=== PATIENT | female | born 1980 | race Caucasian/White ===

== ENCOUNTER 2020-03-30 06:53 | Day surgery (SDC) | payer BC, OTHER ==
[2020-03-30] MEDS ORDERED: Lactated Ringers 1,000 ML IV ONE (07:10)
[2020-03-30] MEDS ORDERED: MEFOXIN 2 GM PREMIX** 2 GM/50 ML ML IV ONE (07:15)
[2020-03-30] MEDS ORDERED: CEFAZOLIN 2 GM-D5W BAG** 2 GM/50 ML ML IV ONE (07:17)
[2020-03-30] MEDS ORDERED: Lactated Ringers 1,000 ML IV SCH (07:30)
[2020-03-30] MEDS ORDERED: CEFAZOLIN 2 GM-D5W BAG** 2 GM/50 ML ML IV SCH (07:30)
[2020-03-30] MEDS ORDERED: DIPRIVAN 200 MG/20 ML IV ONE (08:52)
[2020-03-30] MEDS ORDERED: Versed 2 MG/2 ML Injection ONE (08:52)
[2020-03-30] MEDS ORDERED: SUBLIMAZE 100 MCG/2 ML ONE ×3 (08:52→09:14)
[2020-03-30] MEDS ORDERED: Xylocaine-Mpf 2% 5 Ml Vial ONE (08:54)
[2020-03-30] MEDS ORDERED: Decadron 4 MG INJ ONE (08:56)
[2020-03-30] MEDS ORDERED: TORAdol 30 mg Injection ONE (09:06)
[2020-03-30] MEDS ORDERED: Zofran 4 MG/2 ML VIAL ONE (09:10)
[2020-03-30 10:08] VITALS: O2SAT 95
[2020-03-30] MEDS ORDERED: ARZOL Silver Nitrate Applicator TP ONE (10:12)
[2020-03-30 10:43] VITALS: BP 148/87; PULSE 93
--- NOTE | 2020-03-31 07:51 | OP ---
SURGERY DATE/TIME: 03/30/2020 0852 PREOPERATIVE DIAGNOSIS: Menometrorrhagia and submucosal fibroid. 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 PROCEDURE: Hysteroscopy, D&C. SURGEON: Carroll Cristobal D.O. STREETCAR DISPATCHER: Vandana Finch, collision repair technician. ANESTHESIA: General. ESTIMATED BLOOD LOSS: Minimal. COMPLICATIONS: None. INDICATIONS: The risks, benefits, indications and alternatives of the procedure were reviewed with the patient prior to the procedure. The patient understood the risk of infection, bleeding, bowel injury, bladder injury, ureteral injury, uterine perforation, pelvic infection and thrombophilia disorder associated with the surgery however desires to have this procedure as a possible means to alleviate her current medical condition. DESCRIPTION OF PROCEDURE AND FINDINGS: At this point the patient is taken to the operating room, given general sedation, placed in dorsal lithotomy position. Prepped and draped in the usual sterile fashion. A weighted speculum is then placed in the patient's vagina and the anterior lip of the cervix was grasped with a single tooth tenaculum. Endocervical dilators were placed through the endocervical canal as a means to dilate the cervix. However there appeared to be two distinct openings from the cervical region where visualization revealed her to have a septum in the midline extending to her uterine fundus. The dilator appeared to enter with ease on both sides where the hysteroscope was then placed in through the endocervical canal where visualization revealed no submucosal fibroids on either side and there were no other gross abnormalities that were noted. Again, the septum appeared to be thick and midline. At this point the hysteroscope was removed and curette was then placed into the endocervical canal towards the frontal region on both sides retrieving a mild to moderate amount of endometrial tissue. From this point all instruments were then removed from the patient's vaginal region. The patient was then taken out of dorsal lithotomy position, was taken out of anesthesia and was then taken to the recovery room in stable condition. All instruments and laps were accounted for x2.
== END 2020-03-30 10:40 | disposition home or self-care (01) ==
LOC: SDC 06:53
PROVIDERS: ATTEND Obstetrics & Gynecology
DX: N92.1 Excessive and frequent menstruation with irregular cycle (principal); D25.9 Leiomyoma of uterus, unspecified
CPT/HCPCS: 58558; 84703; 88305; J0690; J0694; J1100; J1885; J2250; J2405; J2704; J3010; A9270-GY

== ENCOUNTER 2020-06-14 13:44 | Inpatient (IN) | payer OTHER ==
[2020-06-15] MEDS ORDERED: Lactated Ringers 1,000 ML IV ONE ×4 (06:33→14:37)
[2020-06-15] MEDS ORDERED: Naropin 0.5% 30 ML VIAL IJ ONE (07:56)
[2020-06-15] MEDS ORDERED: CEFAZOLIN 2 GM-D5W BAG** 2 GM/50 ML ML IV SCH (08:00)
[2020-06-15] MEDS ORDERED: CEFAZOLIN 2 GM-D5W BAG** 2 GM/50 ML ML IV ONE (08:11)
[2020-06-15 08:42] LABS: Hematocrit 37.6 % (35-47); Hemoglobin 11.7 gm/dl (12.0-16.0); Mean Cell Volume 81.2 fl (78-100); Mean Corpuscular Hemoglobin 25.3 pg (26-32); Mean Corpuscular Hgb Concent. 31.1 g/dl (32-36); Mean Platelet Volume 10.7 fl (7.5-11.0); Platelet Count 321 K/mm3 (150-450); Red Blood Count 4.63 M/mm3 (4.1-5.4); Red Cell Distribution Width 14.4 % (11.5-14.0); White Blood Count 8.3 K/mm3 (4.0-10.5)
[2020-06-15 09:16] LABS: ALBUMIN 4.1 g/dL (3.5-5.0); ALKALINE PHOSPHATASE 91 U/L (38-126); BLOOD UREA NITROGEN 12 mg/dL (7-17); CHLORIDE 104 mmol/L (98-107); Calcium 9.5 mg/dL (8.4-10.2); Carbon Dioxide 24 mmol/L (22-30); Creatinine 1 0.75 mg/dL (0.52-1.04); EST GLOMERULAR FILTRATION RATE > 60.0 ML/MIN; Glucose 111 mg/dL (74-106); SGOT/AST 34 U/L (14-36); SGPT/ALT 28 U/L (0-35); SODIUM 137 mmol/L (137-145); Total Protein 7.7 g/dL (6.3-8.2)
[2020-06-15 09:37] LABS: ABO TYPING A; Antibody Screen NEGATIVE (NEGATIVE); RH TYPING NEGATIVE
[2020-06-15] MEDS ORDERED: Astramorph-Pf 5 MG/10 ML ONE (12:18)
[2020-06-15] MEDS ORDERED: DIPRIVAN 200 MG/20 ML IV ONE (12:18)
[2020-06-15] MEDS ORDERED: Versed 2 MG/2 ML Injection ONE (12:18)
[2020-06-15] MEDS ORDERED: Zemuron 100 MG/10 ML ONE (12:18)
[2020-06-15] MEDS ORDERED: SUBLIMAZE 100 MCG/2 ML ONE (12:18)
[2020-06-15] MEDS ORDERED: Xylocaine-Mpf 2% 5 Ml Vial ONE (12:47)
[2020-06-15] MEDS ORDERED: Decadron 4 MG INJ ONE (13:01)
[2020-06-15] MEDS ORDERED: EPINEPHRINE 1MG/ML AMP ONE (13:29)
[2020-06-15] MEDS ORDERED: Zofran 4 MG/2 ML VIAL ONE (14:20)
[2020-06-15 15:09] LABS: Appearance CLEAR (CLEAR); Bilirubin NEGATIVE (NEGATIVE); Blood NEGATIVE Ery/ul (0-5); Glucose NEGATIVE (NEGATIVE); Ketones NEGATIVE (NEGATIVE); Leukocyte Esterase TRACE (NEGATIVE); Mucus SLIGHT /HPF (NEGATIVE); Nitrite NEGATIVE (NEGATIVE); Protein,Urine Dip NEGATIVE (Negative); Urobilinogen NEGATIVE mg/dL (0-1)
[2020-06-15] MEDS ORDERED: Zofran 4 MG/2 ML VIAL IV PRN ×2 (16:10→16:30)
[2020-06-15] MEDS ORDERED: Narcan 0.4 MG/ML IV PRN (16:30)
[2020-06-15] MEDS ORDERED: Sodium Chloride 0.9% 10 ML FLUSH Syringe IJ PRN (16:30)
[2020-06-15] MEDS ORDERED: MORPHINE SULFATE 2 MG INJ IV PRN ×2 (16:30→17:00)
[2020-06-15] MEDS ORDERED: CLARITIN 10 MG PO PRN (16:30)
[2020-06-15] MEDS ORDERED: PERCOCET TABLET 5/325MG PO PRN (16:30)
[2020-06-15] MEDS ORDERED: Nubain 10 MG/ML IV PRN ×2 (16:30→17:45)
[2020-06-15] MEDS ORDERED: DEMEROL 50 MG IV PRN (16:30)
[2020-06-15] MEDS: Reglan 10 MG/2 ML IV SCH (17:05)
[2020-06-15] MEDS: CEFAZOLIN 2 GM-D5W BAG** 2 GM/50 ML ML IV SCH (17:05)
[2020-06-15] MEDS ORDERED: BENADRYL 50 MG/ML IV PRN (17:36)
[2020-06-15] MEDS: TORAdol 30 mg Injection IV PRN (18:14)
[2020-06-15 18:45] LABS: Hematocrit 37.3 % (35-47); Hemoglobin 11.7 gm/dl (12.0-16.0); Mean Cell Volume 81.8 fl (78-100); Mean Corpuscular Hemoglobin 25.7 pg (26-32); Mean Corpuscular Hgb Concent. 31.4 g/dl (32-36); Mean Platelet Volume 10.9 fl (7.5-11.0); Platelet Count 311 K/mm3 (150-450); Red Blood Count 4.56 M/mm3 (4.1-5.4); Red Cell Distribution Width 14.4 % (11.5-14.0); White Blood Count 12.9 K/mm3 (4.0-10.5)
[2020-06-15] MEDS: Colace 100 MG PO SCH (21:25)
[2020-06-15] MEDS: Mylicon 80MG PO SCH (21:25)
[2020-06-15] MEDS: Lactated Ringers 1,000 ML IV SCH ×2 (21:31→23:56)
[2020-06-15] MEDS: Sodium Chloride 0.9% 10 ML FLUSH Syringe IJ SCH (22:16)
[2020-06-16] MEDS: CEFAZOLIN 2 GM-D5W BAG** 2 GM/50 ML ML IV SCH (02:21)
[2020-06-16] MEDS: Reglan 10 MG/2 ML IV SCH ×2 (02:25→06:02)
[2020-06-16 05:59] LABS: Hematocrit 33.4 % (35-47); Hemoglobin 10.4 gm/dl (12.0-16.0); Mean Cell Volume 82.7 fl (78-100); Mean Corpuscular Hemoglobin 25.7 pg (26-32); Mean Corpuscular Hgb Concent. 31.1 g/dl (32-36); Platelet Count 308 K/mm3 (150-450); Red Blood Count 4.04 M/mm3 (4.1-5.4); Red Cell Distribution Width 14.3 % (11.5-14.0); White Blood Count 13.6 K/mm3 (4.0-10.5)
[2020-06-16] MEDS: Sodium Chloride 0.9% 10 ML FLUSH Syringe IJ SCH (06:02)
[2020-06-16] MEDS: Mylicon 80MG PO SCH ×2 (06:06→13:06)
[2020-06-16] MEDS: TORAdol 30 mg Injection IV PRN (06:09)
[2020-06-16 06:30] LABS: ALBUMIN 3.4 g/dL (3.5-5.0); ALKALINE PHOSPHATASE 75 U/L (38-126); BLOOD UREA NITROGEN 10 mg/dL (7-17); CHLORIDE 104 mmol/L (98-107); Calcium 9.1 mg/dL (8.4-10.2); Carbon Dioxide 25 mmol/L (22-30); EST GLOMERULAR FILTRATION RATE > 60.0 ML/MIN; Glucose 115 mg/dL (74-106); Potassium 4.7 mmol/L (3.5-5.1); SGOT/AST 29 U/L (14-36); SGPT/ALT 23 U/L (0-35); SODIUM 134 mmol/L (137-145); Total Protein 6.6 g/dL (6.3-8.2)
[2020-06-16] MEDS ORDERED: ENOXAPARIN SODIUM SQ SCH (08:00)
[2020-06-16] MEDS: Colace 100 MG PO SCH (08:44)
[2020-06-16] MEDS: NORCO 5/325 MG PO PRN ×2 (09:04→13:06)
--- NOTE | 2020-06-16 09:49 | OP ---
SURGERY DATE/TIME: 06/15/2020 1237 PREOPERATIVE DIAGNOSIS: Abnormal uterine bleeding with failed ablation. POSTOPERATIVE DIAGNOSIS: Abnormal uterine bleeding with failed ablation. PROCEDURE: Laparotomy, supracervical hysterectomy, bilateral salpingectomy. SURGEON: Carroll Cristobal D.O. OPHTHALMIC MEDICAL TECHNICIAN: Karson Osborn surgical scrub tech. ANESTHESIA: General. ESTIMATED BLOOD LOSS: 100 cc. COMPLICATIONS: None. INDICATIONS: The risks, benefits, indications and alternatives of the procedure were reviewed with the patient prior to procedure. The patient understood the risk of infection, bleeding, bowel injury, bladder injury, ureteral injury, incisional hernia as well as pelvic infection, thromboembolic disorder that may be associated with the surgery however desires to have this surgery as a possible means to alleviate her current medical condition. DESCRIPTION OF PROCEDURE AND FINDINGS: At this point the patient is taken to the operating room, placed in supine position, given general anesthesia, prepared and draped in the usual sterile fashion. A Pfannenstiel incision was made approximately 2 cm above the symphysis pubis and extended sharply to the rectus fascia. The fascia was then incised bilaterally with curved [place] scissors and the muscle of the anterior abdominal wall was in the midline by sharp and blunt dissection. The peritoneum was then grasped between two pickups elevated and entered sharply with Metzenbaum scissors. The pelvis was examined and noted to be approximately 9 weeks size uterus. An O'Cam-O'Correa retractor was placed into the incision and the bowel packed away with moist laparotomy sponges. Two Felipe clamps were placed cornua and used for retraction. From this point the LigaSure was used and placed over the left utero-ovarian ligament where it was clamped, coagulated and cut and taken down to the round ligament towards the uterine vasculature on the left side and the uterine arteries were skeletonized clamped, coagulated and cut with LigaSure and hemostasis obtained. The same procedure was performed on the right side where the LigaSure was placed over the right utero-ovarian ligament where it was clamped, coagulated and cut taken down to the round ligament toward the uterine vessels where it was skeletonized where it too was clamped, coagulated and cut. At this point the anterior lip of the broad ligament was incised along the bladder reflection where the bladder was gently dissected off the lower uterine segment and the cervix with a sponge stick. From this point cautery was used to amputate the uterus from the cervical stump and was done so without complication and the cervical stump was then closed in interrupted fashion using 0 Vicryl suture with a figure-of-8 sutures. From this point the pelvis was then irrigated copiously with warm normal saline. The bilateral fallopian tubes on either side was lifted up with a Ghanaian and LigaSure was used to clamp, coagulate and cut on either side of the mesosalpinx. Good hemostasis was obtained. The bilateral ovaries appeared to be within normal limits and were not removed during the procedure. At this point all lap, needle, sponge and instruments were removed from the patient's abdomen. From this point the muscles in the peritoneum were closed in interrupted fashion using 2-0 chromic suture. The fascia was reapproximated with 0 Vicryl in running fashion and the subcutaneous layer was closed with 3-0 Vicryl suture and the skin was closed with absorbable cortney called INSORB. Sponge, lap, needle and instrument counts were correct x2. The patient was then taken to the recovery room in stable condition.
[2020-06-16 11:39] VITALS: O2SAT 95
[2020-06-16 16:58] VITALS: BP 129/58; PULSE 101
--- NOTE | 2020-06-16 21:46 | PCM.DS ---
Discharge Summary Date of Admission: 06/15/20 07:55 Admitting Physician: CORY HENRY DO Primary Care Provider: FLORES ROSSI Allergies Allergies No Known Drug Allergies Allergy (Verified 06/15/20 08:12) Hospital Summary - Hospital Course Hospital Course: PT ADMITTED ON JUN 15 FOR UNDERGOING LAPAROTOMY SUPRACERVICAL HYSTERECTOMY BILATERAL SALPINGECTOMY FOR ABNORMAL UTERINE BLEEDING WITH FAILED ABLATION. DURING POSTOP PERIOD PT DID WELL WITH A STABLE HGB AT 10. PT WAS ABLE TO AMBULATE AND TOLERATE DIET WITH POSTIVE FLATUS. PT AT THIS TIME STABLE FOR DISCHARGE. ALL QUESTIONS ANSWERED TO HER SATISFACTION. PT GIVEN RX FOR NORCO AND CLINDAMYCIN. - Vitals & Intake/Output Vital Signs: Vital Signs Temperature 98.2 F 06/16/20 16:30 Pulse Rate 101 H 06/16/20 16:30 Respiratory Rate 18 06/16/20 16:30 Blood Pressure 129/58 06/16/20 16:30 O2 Sat by Pulse Oximetry 95 06/16/20 11:38 Intake & Output: Intake & Output 06/14/20 06/15/20 06/16/20 06/17/20 11:59 11:59 11:59 11:59 Intake Total 1650 240 Output Total 1500 Balance 150 240 Weight 90.9 kg 98.3 kg - Lab Result Diagrams: 06/16/20 05:00 06/16/20 05:00 Lab Results-Last 24 Hrs: Lab Results-Last 24 Hours 06/16/20 06/16/20 Range/Units 05:00 05:00 WBC 13.6 H (4.0-10.5) K/mm3 RBC 4.04 L (4.1-5.4) M/mm3 Hgb 10.4 L (12.0-16.0) gm/dl Hct 33.4 L (35-47) % MCV 82.7 (78-100) fl MCH 25.7 L (26-32) pg MCHC 31.1 L (32-36) g/dl RDW 14.3 H (11.5-14.0) % Plt Count 308 (150-450) K/mm3 MPV 11.0 (7.5-11.0) fl Sodium 134 L (137-145) mmol/L Potassium 4.7 (3.5-5.1) mmol/L Chloride 104 (98-107) mmol/L Carbon Dioxide 25 (22-30) mmol/L Anion Gap 10.0 (5-15) MEQ/L BUN 10 (7-17) mg/dL Creatinine 0.70 (0.52-1.04) mg/dL Estimated GFR > 60.0 ML/MIN Glucose 115 H (74-106) mg/dL Calcium 9.1 (8.4-10.2) mg/dL Total Bilirubin 0.30 (0.2-1.3) mg/dL AST 29 (14-36) U/L ALT 23 (0-35) U/L Alkaline Phosphatase 75 (38-126) U/L Serum Total Protein 6.6 (6.3-8.2) g/dL Albumin 3.4 L (3.5-5.0) g/dL Micro Results-Entire Visit: Microbiology 06/15/20 13:00 Urine Culture - Preliminary Urine, Catheterized NO GROWTH TO DATE - Procedures and Test Procedures and Tests throughout Hospitalization: Therapy Orders & Screens 06/15/20 15:40 Incentive Spirometry TID Comment: Diagnosis: abnormal uterine bleeding, failed ablation Oxygen Nasal Cannula 3 lpm Comment: to keep sats > 93% Diagnosis: abnormal uterine bleeding, failed ablation Final Diagnosis/Problem List - Final Discharge Diagnosis/Problem (1) H/O hysterectomy for benign disease Status: Acute Code(s): Z90.710 - ACQUIRED ABSENCE OF BOTH CERVIX AND UTERUS (2) Abnormal uterine bleeding Status: Acute Code(s): N93.9 - ABNORMAL UTERINE AND VAGINAL BLEEDING, UNSPECIFIED - Discharge Disposition: Home, Self-Care Condition: Good Prescriptions: No Action No Reportable Medications [No Reported Medications] Instructions: Hysterectomy, Abdominal or Laparoscopic Surgery Follow up with: FLORES ROSSI [Primary Care Provider] - CORY HENRY DO [ACTIVE STAFF] - 2 weeks
== END 2020-06-16 16:45 | disposition home or self-care (01) | DRG 743 ==
LOC: SDC 13:44 → MED SURG 06-15 07:55 → OBSVTOIN 06-15 07:55 → EDSTATUS 06-15 13:53 → MED SURG 06-16 13:44
PROVIDERS: ADMIT Obstetrics & Gynecology; ATTEND Obstetrics & Gynecology
PROC: 0UT98ZL Resection of Uterus, Supracervical, Via Natural or Artificial Opening Endoscopic (ICD-10-PCS; principal; 2020-06-15)
PROC: 0UT78ZZ Resection of Bilateral Fallopian Tubes, Via Natural or Artificial Opening Endoscopic (ICD-10-PCS; 2020-06-15)
DX: N93.9 Abnormal uterine and vaginal bleeding, unspecified (principal)
CPT/HCPCS: 36415; 62322; 64486; 64488; 76937; 76942; 80053; 81001; 84703; 85027; 86850; 86900; 86901; 87086; 88307; 94762; J0171; J0690; J1100; J1650; J1885; J2250; J2274; J2405; J2704; J2795; J3010; A9270-GY

== ENCOUNTER 2020-10-22 13:23 | Emergency (ER) | payer OTHER ==
--- NOTE | 2020-10-22 13:29 | ERPHSYRPT ---
- History of Present Illness Time Seen by Provider: 10/22/20 13:29 Historian: patient, family Exam Limitations: no limitations Physician History: This is a 40-year-old white female has had a hysterectomy in the past and presents with recurrent right upper quadrant epigastric abdominal pain that radiates around to her back. The pain was severe and has been intermittent. At the time of arrival in the emergency department she states that her pain has resolved. Patient stated that she had ham and eggs this morning and she had a few attacks in the past but today's attacks are much more severe. She had significant nausea during these attacks. She denies diarrhea. She denies fever she denies chills. She has no chest pain Timing/Duration: today Activities at Onset: none Quality: sharpness, throbbing Abdominal Pain Onset Location: RUQ, epigastric Pain Radiation: back Severity of Pain-Max: moderate Severity of Pain-Current: none Associated Symptoms: loss of appetite, nausea, No chest pain, No diarrhea, No fever/chills, No shortness of breath, No vomiting Previous symptoms: same symptoms as today, no recent treatment Allergies/Adverse Reactions: No Known Drug Allergies Allergy (Verified 10/22/20 13:34) Travel Risk - International Travel Have you traveled outside of the country in past 3 weeks: No - Coronavirus Screening Are you exhibiting any of the following symptoms?: No Close contact with a COVID-19 positive Pt in past 14-21 Days: No - Vaccine Status Have you recieved a Covid-19 vaccination: Yes - Review of Systems Constitutional: No Symptoms Eyes: No Symptoms Ears, Nose, & Throat: No Symptoms Respiratory: No Symptoms Cardiac: No Symptoms Abdominal/Gastrointestinal: Abdominal Pain, Nausea, No Vomiting, No Diarrhea Genitourinary Symptoms: No Symptoms Musculoskeletal: No Symptoms Skin: No Symptoms Neurological: No Symptoms Psychological: No Symptoms Endocrine: No Symptoms Hematologic/Lymphatic: No Symptoms Immunological/Allergic: No Symptoms All Other Systems: Reviewed and Negative - Past Medical History Pertinent Past Medical History: Yes Neurological History: No Pertinent History ENT History: No Pertinent History Cardiac History: No Pertinent History Respiratory History: No Pertinent History Endocrine Medical History: No Pertinent History Musculoskeletal History: No Pertinent History GI Medical History: No Pertinent History History: No Pertinent History Psycho-Social History: No Pertinent History Female Reproductive Disorders: Abnormal Uterine Bleeding, Fibroids Other Medical History: didelphys uterus - Past Surgical History Past Surgical History: Yes Neuro Surgical History: No Pertinent History Cardiac: No Pertinent History Respiratory: No Pertinent History Gastrointestinal: No Pertinent History Genitourinary: No Pertinent History Musculoskeletal: No Pertinent History Female Surgical History: Hysterectomy, Dilation & Curettage, Tubal Ligation, Other Other Surgical History: uterine ablation - Social History Smoking Status: Never smoker Exposure to second hand smoke: No Drug Use: none - Nursing Vital Signs Nursing Vital Signs: Initial Vital Signs Temperature 98.2 F 10/22/20 13:34 Pulse Rate 113 H 10/22/20 13:34 Respiratory Rate 18 10/22/20 13:34 Blood Pressure 138/84 10/22/20 13:34 O2 Sat by Pulse Oximetry 100 10/22/20 13:34 Pain Scale Pain Intensity 1 - Physical Exam General Appearance: no apparent distress, alert, anxiety Eye Exam: PERRL/EOMI, eyes nml inspection Ears, Nose, Throat Exam: normal ENT inspection, moist mucous membranes Neck Exam: normal inspection, non-tender, supple, full range of motion Respiratory Exam: normal breath sounds, lungs clear, airway intact, No chest tenderness, No respiratory distress Cardiovascular Exam: regular rate/rhythm, normal heart sounds, normal peripheral pulses Gastrointestinal/Abdomen Exam: soft, normal bowel sounds, tenderness (None now. Intermittent right upper quadrant and epigastric pain), No guarding, No rebound Pelvic Exam: not done Rectal Exam: not done Back Exam: normal inspection, normal range of motion, No CVA tenderness, No vertebral tenderness Extremity Exam: normal inspection, normal range of motion, pelvis stable Neurologic Exam: alert, oriented x 3, cooperative, administrative director II-XII nml as tested, normal mood/affect, nml cerebellar function, nml station & gait, sensation nml Skin Exam: normal color, warm, dry Lymphatic Exam: No adenopathy SpO2 Interpretation: normal O2 Delivery: Room Air - Course Nursing assessment & vital signs reviewed: Yes Ordered Tests: Active Orders 24 hr Category Date Time Status IV Insertion STAT Care 10/22/20 13:56 Active ABDOMEN AND PELVIS W/0 CONTRAS [CT] Stat Exams 10/22/20 13:58 Completed GALLBLADDER [US] Stat Exams 10/22/20 13:58 Completed AMYLASE Stat Lab 10/22/20 13:45 Completed CBC W DIFF Stat Lab 10/22/20 13:45 Completed CMP Stat Lab 10/22/20 13:45 Completed LIPASE Stat Lab 10/22/20 13:45 Completed Lactic Acid Stat Lab 10/22/20 13:56 Completed UA W/RFX UR CULTURE Stat Lab 10/22/20 13:57 Completed Medication Summary Discontinued Medications Generic Name Dose Route Start Last Admin Trade Name Yasmany PRN Reason Stop Dose Admin Sodium Chloride 1,000 mls @ 999 mls/hr 10/22/20 13:56 10/22/20 14:28 Sodium Chloride 0.9% 1000 Ml IV 10/22/20 14:56 999 mls/hr .Q1H1M STA Administration Sodium Chloride Confirm 10/22/20 14:31 Sodium Chloride 0.9% 1000 Ml Administered 10/22/20 14:32 Dose 1,000 mls @ ud .ROUTE .STK-MED ONE Lab/Rad Data: Laboratory Result Diagrams 10/22/20 13:45 10/22/20 13:45 Laboratory Results 10/22/20 10/22/20 10/22/20 Range/Units 13:57 13:56 13:45 WBC (4.0-10.5) K/mm3 RBC (4.1-5.4) M/mm3 Hgb (12.0-16.0) gm/dl Hct (35-47) % MCV (78-100) fl MCH (26-32) pg MCHC (32-36) g/dl RDW (11.5-14.0) % Plt Count (150-450) K/mm3 MPV (7.5-11.0) fl Gran % (36.0-66.0) % Eos # (Auto) (0-0.5) Absolute Lymphs (auto) (1.0-4.6) Absolute Monos (auto) (0.0-1.3) Lymphocytes % (24.0-44.0) % Monocytes % (0.0-12.0) % Eosinophils % (0.00-5.0) % Basophils % (0.0-0.4) % Absolute Granulocytes (1.4-6.9) Basophils # (0-0.4) Sodium 138 (137-145) mmol/L Potassium 4.0 (3.5-5.1) mmol/L Chloride 102 (98-107) mmol/L Carbon Dioxide 27 (22-30) mmol/L Anion Gap 12.5 (5-15) MEQ/L BUN 12 (7-17) mg/dL Creatinine 0.84 (0.52-1.04) mg/dL Estimated GFR > 60.0 ML/MIN Glucose 90 (74-106) mg/dL Lactic Acid 1.8 (0.4-2.0) Calcium 9.9 (8.4-10.2) mg/dL Total Bilirubin 0.30 (0.2-1.3) mg/dL AST 45 H (14-36) U/L ALT 37 H (0-35) U/L Alkaline Phosphatase 99 (38-126) U/L Serum Total Protein 8.2 (6.3-8.2) g/dL Albumin 4.5 (3.5-5.0) g/dL Amylase 60 (30-110) U/L Lipase 92 (23-300) U/L Urine Color YELLOW (YELLOW) Urine Appearance TURBID (CLEAR) Urine pH 7.0 (5-6) Ur Specific Golden 1.018 (1.005-1.025) Urine Protein NEGATIVE (Negative) Urine Ketones NEGATIVE (NEGATIVE) Urine Blood LARGE (0-5) Johan/ul Urine Nitrite NEGATIVE (NEGATIVE) Urine Bilirubin NEGATIVE (NEGATIVE) Urine Urobilinogen NEGATIVE (0-1) mg/dL Ur Leukocyte Esterase NEGATIVE (NEGATIVE) Urine WBC (Auto) NONE (0-5) /HPF Urine RBC (Auto) 16-25 (0-2) /HPF U Epithel Cells (Auto) RARE (FEW) /HPF Urine Bacteria (Auto) NONE (NEGATIVE) /HPF Urine Mucus (Auto) SLIGHT (NEGATIVE) /HPF Urine Culture Reflexed NO (NO) Urine Glucose NEGATIVE (NEGATIVE) mg/dL 10/22/20 Range/Units 13:45 WBC 8.7 (4.0-10.5) K/mm3 RBC 4.89 (4.1-5.4) M/mm3 Hgb 12.6 (12.0-16.0) gm/dl Hct 40.0 (35-47) % MCV 81.8 (78-100) fl MCH 25.8 L (26-32) pg MCHC 31.5 L (32-36) g/dl RDW 14.9 H (11.5-14.0) % Plt Count 302 (150-450) K/mm3 MPV 10.9 (7.5-11.0) fl Gran % 52.9 (36.0-66.0) % Eos # (Auto) 0.10 (0-0.5) Absolute Lymphs (auto) 3.26 (1.0-4.6) Absolute Monos (auto) 0.72 (0.0-1.3) Lymphocytes % 37.4 (24.0-44.0) % Monocytes % 8.3 (0.0-12.0) % Eosinophils % 1.1 (0.00-5.0) % Basophils % 0.3 (0.0-0.4) % Absolute Granulocytes 4.60 (1.4-6.9) Basophils # 0.03 (0-0.4) Sodium (137-145) mmol/L Potassium (3.5-5.1) mmol/L Chloride (98-107) mmol/L Carbon Dioxide (22-30) mmol/L Anion Gap (5-15) MEQ/L BUN (7-17) mg/dL Creatinine (0.52-1.04) mg/dL Estimated GFR ML/MIN Glucose (74-106) mg/dL Lactic Acid (0.4-2.0) Calcium (8.4-10.2) mg/dL Total Bilirubin (0.2-1.3) mg/dL AST (14-36) U/L ALT (0-35) U/L Alkaline Phosphatase (38-126) U/L Serum Total Protein (6.3-8.2) g/dL Albumin (3.5-5.0) g/dL Amylase (30-110) U/L Lipase (23-300) U/L Urine Color (YELLOW) Urine Appearance (CLEAR) Urine pH (5-6) Ur Specific Golden (1.005-1.025) Urine Protein (Negative) Urine Ketones (NEGATIVE) Urine Blood (0-5) Johan/ul Urine Nitrite (NEGATIVE) Urine Bilirubin (NEGATIVE) Urine Urobilinogen (0-1) mg/dL Ur Leukocyte Esterase (NEGATIVE) Urine WBC (Auto) (0-5) /HPF Urine RBC (Auto) (0-2) /HPF U Epithel Cells (Auto) (FEW) /HPF Urine Bacteria (Auto) (NEGATIVE) /HPF Urine Mucus (Auto) (NEGATIVE) /HPF Urine Culture Reflexed (NO) Urine Glucose (NEGATIVE) mg/dL - Progress Progress: improved, re-examined Progress Note: 10/22/20 15:06 Gallbladder ultrasound shows a partially contracted gallbladder with no evidence of gallstones or pericholecystic fluid. CAT scan of the abdomen pelvis without contrast shows no acute intra-abdominal or intrapelvic abnormalities Counseled pt/family regarding: lab results, diagnosis, need for follow-up, rad results - Departure Departure Disposition: Home Clinical Impression: Right upper quadrant abdominal pain Condition: Stable Critical Care Time: No Referrals: FLORES ROSSI [Primary Care Provider] - Additional Instructions: Drink plenty of fluids. Avoid fatty greasy spicy foods. Follow-up with your primary care physician for further evaluation of your gallbladder including a HIDA scan if indicated. Return to the emergency department if symptoms worsen Prescriptions: Ondansetron ODT 4 MG [Zofran Odt 4 mg] 4 mg PO Q6H PRN PRN #10 tab.rapdis PRN Reason: Vomiting Hydrocodone/APAP 5/325 [Ribera 5/325 mg] 1 each PO Q8H PRN PRN #6 tablet MDD 3 PRN Reason: Pain
[2020-10-22] MEDS ORDERED: Sodium Chloride 0.9% 1000 ML 1,000 ML IV STA (13:56)
[2020-10-22 14:23] LABS: BASOPHIL % 0.3 % (0.0-0.4); Basophil (Absolute #) 0.03 (0-0.4); Eosinophil % 1.1 % (0.00-5.0); Hemoglobin 12.6 gm/dl (12.0-16.0); Lymphocyte (Absolute #) 3.26 (1.0-4.6); Lymphocytes % 37.4 % (24.0-44.0); Mean Cell Volume 81.8 fl (78-100); Mean Corpuscular Hemoglobin 25.8 pg (26-32); Mean Corpuscular Hgb Concent. 31.5 g/dl (32-36); Mean Platelet Volume 10.9 fl (7.5-11.0); Monocyte (Absolute #) 0.72 (0.0-1.3); Monocytes % 8.3 % (0.0-12.0); Neutrophil % 52.9 % (36.0-66.0); Platelet Count 302 K/mm3 (150-450); Red Blood Count 4.89 M/mm3 (4.1-5.4); Red Cell Distribution Width 14.9 % (11.5-14.0); White Blood Count 8.7 K/mm3 (4.0-10.5)
[2020-10-22 14:27] LABS: ALBUMIN 4.5 g/dL (3.5-5.0); ALKALINE PHOSPHATASE 99 U/L (38-126); AMYLASE 60 U/L (30-110); ANION GAP 12.5 MEQ/L (5-15); BLOOD UREA NITROGEN 12 mg/dL (7-17); CHLORIDE 102 mmol/L (98-107); Calcium 9.9 mg/dL (8.4-10.2); Carbon Dioxide 27 mmol/L (22-30); Creatinine 1 0.84 mg/dL (0.52-1.04); EST GLOMERULAR FILTRATION RATE > 60.0 ML/MIN; Glucose 90 mg/dL (74-106); LIPASE 92 U/L (23-300); SGOT/AST 45 U/L (14-36); SGPT/ALT 37 U/L (0-35); SODIUM 138 mmol/L (137-145); Total Protein 8.2 g/dL (6.3-8.2)
[2020-10-22] MEDS ORDERED: Sodium Chloride 0.9% 1000 ML 1,000 ML ONE (14:31)
[2020-10-22 14:33] LABS: Appearance TURBID (CLEAR); Bilirubin NEGATIVE (NEGATIVE); Blood LARGE Ery/ul (0-5); Epithelial Cells RARE /HPF (FEW); Glucose NEGATIVE (NEGATIVE); Ketones NEGATIVE (NEGATIVE); Leukocyte Esterase NEGATIVE (NEGATIVE); Mucus SLIGHT /HPF (NEGATIVE); Nitrite NEGATIVE (NEGATIVE); Protein,Urine Dip NEGATIVE (Negative); Specific Gravity 1.018 (1.005-1.025); Urobilinogen NEGATIVE mg/dL (0-1)
--- NOTE | 2020-10-22 14:39 | XRAY ---
Indication: Right upper quadrant pain. Two-dimensional gallbladder sonogram performed. Comparison: None Gallbladder partially contracted without obvious gallstones or pericholecystic fluid. Common bile duct measures 4.4 mm. No intrahepatic biliary distention. Mild fatty echogenic liver without focal solid/cystic mass or ascites. Remaining visualized pancreas and right kidney sonographically unremarkable. Right kidney measures 11.9 cm in length. Impression: Partially contracted gallbladder and fatty liver. Remaining gallbladder sonogram is negative.
--- NOTE | 2020-10-22 15:01 | XRAY ---
Indication: Epigastric/right upper quadrant pain. Multiple contiguous axial images obtained through the abdomen and pelvis without contrast. Comparison: None Lung bases demonstrates right middle and right lower lobe calcified granulomas. No infiltrate or effusion. Heart is not enlarged. Noncontrasted stomach and bowel loops appear nonobstructed. Normal appendix. Minimal sigmoid diverticulosis. 3.9 cm right ovary cyst and tampon in situ. No free fluid/air. Gallbladder contracted without gallstones. Mild fatty liver and splenic calcified granuloma. Remaining liver, gallbladder, pancreas, spleen, adrenal glands, kidneys, ureters, bladder, uterus, and aorta appear unremarkable for noncontrast exam. Osseous structures intact. No ventral or inguinal hernias. Impression: 1. 3.9 cm right ovary cyst and tampon in situ. Pelvic sonogram may yield further information if clinically warranted. 2. Minimal sigmoid diverticulosis, fatty liver, and old granulomatous disease. 3. Remaining CT abdomen/pelvis without contrast exam is negative.
[2020-10-22 15:10] VITALS: O2SAT 99
[2020-10-22 15:28] VITALS: BP 118/74; PULSE 96
== END 2020-10-22 15:35 | disposition home or self-care (01) ==
LOC: ED 13:23
DX: R10.11 Right upper quadrant pain (principal)
CPT/HCPCS: 36415; 74176; 76705; 80053; 81001; 82150; 83605; 83690; 85025; 99284

== ENCOUNTER 2022-05-17 08:40 | Emergency (ER) | payer OTHER ==
[2022-05-17 08:51] VITALS: BP 157/96; PULSE 98; O2SAT 98
--- NOTE | 2022-05-17 09:16 | ERPHSYRPT ---
- History of Present Illness Time Seen by Provider: 05/17/22 09:11 Source: patient Exam Limitations: no limitations Patient Subjective Stated Complaint: Exposure-Needle stick Triage Nursing Assessment: Patient ambulated back to ED and transferred self to bed. Patient A+O X 3. Patient's skin pink, warm and dry. 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 Patient states she was giving her patient Lovenox with gloved hands and she attempted to re cap needle instead of using safety feature causing the needle to stick left hand 1st digit. Patient states she washed hands immediately and reported to bleaching supervisor. 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 When capping the needle back the end of the needle pierced through the needle cover pierced her left index finger. Patient is refusing any of the medications and therefore no lab work is necessary. Timing/Duration: today Quality: other (No significant pain) Severity: mild Location: hands (Left index finger) Possible Causes: other (Needlestick) Associated Symptoms: denies symptoms Allergies/Adverse Reactions: No Known Drug Allergies Allergy (Verified 05/17/22 08:45) Home Medications: No Reportable Medications [No Reported Medications] 05/17/22 [History] Hx Influenza Vaccination/Date Given: Yes Hx Pneumococcal Vaccination/Date Given: No Immunizations Up to Date: Yes Travel Risk - International Travel Have you traveled outside of the country in past 3 weeks: No - Coronavirus Screening Are you exhibiting any of the following symptoms?: No - Vaccine Status Have you recieved a Covid-19 vaccination: Yes [employer]: [employer] - Vaccination Dates Date of 2cond Vaccination (if applicable): na - Review of Systems Constitutional: No Symptoms Eyes: No Symptoms Ears, Nose, & Throat: No Symptoms Respiratory: No Symptoms Cardiac: No Symptoms Abdominal/Gastrointestinal: No Symptoms Genitourinary Symptoms: No Symptoms Musculoskeletal: Injury (Needlestick left index finger) Skin: Other (Needlestick left index finger) Neurological: No Symptoms Psychological: No Symptoms Endocrine: No Symptoms Hematologic/Lymphatic: No Symptoms Immunological/Allergic: No Symptoms - Past Medical History Pertinent Past Medical History: Yes Neurological History: No Pertinent History ENT History: No Pertinent History Cardiac History: No Pertinent History Respiratory History: No Pertinent History Endocrine Medical History: No Pertinent History Musculoskeletal History: No Pertinent History GI Medical History: No Pertinent History History: No Pertinent History Psycho-Social History: No Pertinent History Female Reproductive Disorders: Abnormal Uterine Bleeding, Fibroids Other Medical History: didelphys uterus - Past Surgical History Past Surgical History: Yes Neuro Surgical History: No Pertinent History Cardiac: No Pertinent History Respiratory: No Pertinent History Gastrointestinal: No Pertinent History Genitourinary: No Pertinent History Musculoskeletal: No Pertinent History Female Surgical History: Hysterectomy, Dilation & Curettage, Tubal Ligation, Other Other Surgical History: uterine ablation - Social History Smoking Status: Never smoker Exposure to second hand smoke: No Drug Use: none Patient Lives Alone: No - Female History Hx Last Menstrual Period: hysterectomy Hx Now: No - Nursing Vital Signs Nursing Vital Signs: Initial Vital Signs Temperature 97.0 F 05/17/22 08:46 Pulse Rate 98 H 05/17/22 08:46 Respiratory Rate 18 05/17/22 08:46 Blood Pressure 157/96 05/17/22 08:46 O2 Sat by Pulse Oximetry 98 05/17/22 08:46 Pain Scale Pain Intensity 0 - Physical Exam General Appearance: no apparent distress, alert Eye Exam: PERRL/EOMI, eyes nml inspection Ears, Nose, Throat Exam: normal ENT inspection, moist mucous membranes Neck Exam: normal inspection, non-tender, supple, full range of motion Respiratory Exam: chest tenderness, airway intact, No respiratory distress Gastrointestinal/Abdomen Exam: No tenderness Pelvic Exam: not done Rectal Exam: not done Back Exam: normal inspection, normal range of motion, No CVA tenderness, No vertebral tenderness Extremity Exam: other (Small needlestick left index finger. No infection. No active bleeding. Neurovascularly intact. No tendon injury) Neurologic Exam: alert, oriented x 3, cooperative, water systems designer II-XII nml as tested, normal mood/affect, nml cerebellar function, nml station & gait, sensation nml Skin Exam: normal color, warm, dry Lymphatic Exam: No adenopathy SpO2 Interpretation: normal SpO2: 98 O2 Delivery: Room Air Ordered Tests: Active Orders 24 hr Category Date Time Status Wound Care STAT Care 05/17/22 08:52 Active - Progress Progress: unchanged Counseled pt/family regarding: diagnosis - Departure Departure Disposition: Home Clinical Impression: Needlestick injury accident Condition: Stable Critical Care Time: No Referrals: [facility] [Primary Care Provider] - Follow up/PCP as directed Additional Instructions: Keep the site clean daily with soap and water. Follow-up with your primary care physician as needed
[2022-05-18 12:05] LABS: HBsAg Screen Negative (Negative); HIV Screen 4th Generation wRfx Non Reactive (Non Reactive); Hep B Surface Ab, Quant 29.9 mIU/mL (Immunity>9.9); Hep C Virus Ab <0.1 s/co ratio (0.0-0.9)
== END 2022-05-17 09:36 | disposition home or self-care (01) ==
LOC: ER - EH 08:40
DX: S61.231A Puncture wound without foreign body of left index finger without damage to nail, initial encounter (principal); W26.8XXA Contact with other sharp object(s), not elsewhere classified, initial encounter; Y93.F9 Activity, other caregiving; Y92.239 Unspecified place in hospital as the place of occurrence of the external cause; Y99.0 Civilian activity done for income or pay; Z20.828 Contact with and (suspected) exposure to other viral communicable diseases
CPT/HCPCS: 36415; 86317; 87340; 87389; 99283; G0472; 86803